=== PATIENT | female | born 1950 ===

== ENCOUNTER 2017-11-30 03:07 | Emergency (ER) | payer MEDICARE ==
[2017-11-30 03:07] VITALS: BMI 45.4
[2017-11-30 03:15] VITALS: RESP 18
[2017-11-30] MEDS ORDERED: Labetalol 25mg/5ml Syringe IVP STA (03:18)
--- NOTE | 2017-11-30 03:28 | C.PDOC ---
History Of Present Illness 67 y/o F c PMHx HTN p/w headache x 3 hours. Patient describes headache as diffuse, like pounding and tingling. Denies fever, vision change, nausea, vomiting, numbness, weakness, stiff neck. States she always gets this headache when she has high blood pressure. Time Seen by Provider: 11/30/17 03:12 Chief Complaint (Nursing): High Blood Pressure Past Medical History Vital Signs: Last Vital Signs Temp 97.7 F 11/30/17 03:12 Pulse 82 11/30/17 03:57 Resp 18 11/30/17 03:57 BP 178/83 H 11/30/17 03:57 Pulse Ox 97 11/30/17 04:45 - Medical History PMH: Diabetes, HTN Family History: States: Unknown Family Hx - Social History Hx Tobacco Use: No Hx Alcohol Use: No Hx Substance Use: No - Immunization History Hx Tetanus Toxoid Vaccination: Yes Hx Influenza Vaccination: Yes Hx Pneumococcal Vaccination: Yes Review Of Systems Except As Marked, All Systems Reviewed And Found Negative. Constitutional: Negative for: Fever Eyes: Negative for: Vision Change Physical Exam - Physical Exam Additional Physical Exam Comments: Gen: NAD Head: NC/AT Eyes: PERRL. EOMI ENT: MMM Neck: Supple. No rigidity CV: Regular rate Lungs: CTA b/l Abd: Soft, NT Back: No CVA tenderness Skin: No rash Neuro: Alert, no focal deficit. Motor 5/5 x 4. CN II to II intact. Sensation to light touch intact. Oriented x 3. ED Course And Treatment - Laboratory Results Result Diagrams: 11/30/17 03:47 11/30/17 03:47 O2 Sat by Pulse Oximetry: 97 Medical Decision Making Medical Decision Making: Labetalol for HTN, CT head to exclude acute bleed. CT Head results: FINDINGS: BRAIN: Incidental tiny 8 x 3 mm fat density area in the upper posterior fossa region, in the midline, which appears extra-axial. This most likely a lipoma or other clinically insignificant entity. No significant acute abnormality identified. No acute hemorrhage seen within the brain. No acute extra-axial fluid collections visualized. No evidence of significant mass effect within the brain. Normal edmondson-white matter differentiation. VENTRICLES: No evidence of significant hydrocephalus. BONES/JOINTS: No acute fractures or other acute bony abnormality noted. SOFT TISSUES: No acute abnormality of the visualized soft tissues is seen. SINUSES: Visualized paranasal sinuses appear clear. MASTOID AIR CELLS: Mastoid air cells appear clear. IMPRESSION: - No acute findings seen within the brain. - See above for remaining findings. Thank you for allowing us to participate in the care of your patient. Dictated and Authenticated by: Nancy Painter MD 11/30/2017 4:19 AM Eastern Time ([place] & [place]) Patient states she feels much better. Will discharge home, f/u PMD, instructed to return to ED for worsening pain, dyspnea, chest pain, vomiting, or any other problem. Disposition - Disposition Referrals: Darío Ayon MD [Staff Provider] - Disposition: HOME/ ROUTINE Disposition Time: 04:45 Condition: STABLE Instructions: Headache, Adult Forms: [facility] (Irish) - Clinical Impression Clinical Impression: Headache
[2017-11-30] MEDS ORDERED: Labetalol 25mg/5ml Syringe ONE (03:40)
[2017-11-30 03:50] LABS: BASO # 0.1 K/uL (0.0-0.2); BASO % 0.9 % (0.0-2.0); EOS # 0.3 K/uL (0.0-0.7); HEMOGLOBIN 14.2 g/dL (11.0-16.0); LYMPH % 35.5 % (20.0-40.0); MEAN CORPUSCULAR HEMOGLOBIN 27.9 pg (27.0-31.0); MEAN CORPUSCULAR HGB CONC 34.5 g/dL (33.0-37.0); MONO # 0.6 K/uL (0.0-0.8); MONO % 7.2 % (0.0-10.0); NEUT # 4.6 K/uL (1.8-7.0); NEUT % 53.4 % (50.0-75.0); NRBC % 0.1 % (0.0-2.0); RBC 5.09 Mil/uL (3.80-5.20); WHITE BLOOD COUNT 8.5 K/uL (4.8-10.8)
[2017-11-30 03:59] LABS: ALB/GLOB RATIO 0.9 (1.0-2.1); ALBUMIN 3.8 g/dL (3.5-5.0); ALT/SGPT 26 U/L (9-52); AST/SGOT 26 U/L (14-36); BLOOD UREA NITROGEN 14 mg/dL (7-17); GFR AFRICAN-AMERICAN > 60; GFR NON-AFRICAN AMERICAN > 60
[2017-11-30 04:27] LABS: SQUAMOUS EPITHIAL 3 /hpf (0-5); URINE BILIRUBIN NEGATIVE (NEGATIVE); URINE BLOOD NEGATIVE (NEGATIVE); URINE CLARITY Clear (Clear); URINE COLOR Straw (YELLOW); URINE GLUCOSE (UA) NORMAL (Normal); URINE LEUKOCYTE ESTERASE NEG Leu/uL (Negative); URINE PROTEIN 2+ mg/dL (NEGATIVE); URINE UROBILINOGEN NORMAL mg/dL (0.2-1.0)
[2017-11-30 04:44] VITALS: O2SAT 97
[2017-11-30 05:05] VITALS: BP 151/70; PULSE 87; TEMP 98.6
--- NOTE | 2017-11-30 08:47 | CT ---
CT head History: Headache. Comparison: None available. Technique: Multiple contiguous axial images were performed through the head without the use of intravenous contrast. Subsequently, sagittal and coronal reformatted images were obtained. Findings: Incidentally noted is a small 8 x 3 millimeter fat containing density area in the upper posterior fossa region, in the midline which appears extra-axial. This is of uncertain clinical etiology and may represent a small lipoma. Bilateral basal ganglia calcifications. No acute intracranial hemorrhage identified. Normal edmondson-white matter differentiation. No evidence of significant hydrocephalus. Paranasal sinuses appear preserved. Impression: No acute intracranial hemorrhage. 8 x 3 millimeter fat containing density in the upper posterior fossa region, in the midline, which appears extra-axial. This is of uncertain clinical etiology. This may represent a small lipoma. Additional etiologies not excluded. Correlation with MRI may be helpful if clinically indicated. These findings were preliminarily reported at 4:19 a.m. on 11/30/[address] Nancy Painter from [facility].
--- NOTE | 2017-12-01 11:10 | CARD ---
APPROVED REPORT EKG Measurement Heart [id number] <Conclusion> Normal sinus rhythm Normal ECG
== END 2017-11-30 05:15 | disposition home or self-care (01) ==
LOC: C.ER 03:07
DX: R51 Headache (principal); I10 Essential (primary) hypertension; E11.9 Type 2 diabetes mellitus without complications

== ENCOUNTER 2018-03-29 06:03 | Observation (INO) | payer MEDICARE ==
[2018-03-29 06:03] VITALS: BMI 45.4
[2018-03-29] MEDS ORDERED: Nitroglycerin 2% Ointment Foilpak UD TOP STA (06:24)
--- NOTE | 2018-03-29 06:26 | C.PDOC ---
History Of Present Illness <Mohit Mcnally R - Last Filed: 03/29/18 06:29> <Maldonado Mckeon E - Last Filed: 03/29/18 07:50> 67yo female, history of HTN, comes to ER after noticing high blood pressure at home. Patient reports mild headache and a "pressure" sensation in her chest. She denies any chest pain or shortness of breath. (Mohit Mcnally R) History Per: Patient History/Exam Limitations: no limitations Onset/Duration Of Symptoms: Days Current Symptoms Are (Timing): Still Present Quality: Pressure Additional History Per: Patient <Mohit Mcnally R - Last Filed: 03/29/18 06:29> <Maldonado Mckeon - Last Filed: 03/29/18 07:50> Time Seen by Provider: 03/29/18 06:10 Chief Complaint (Nursing): Chest Pain Past Medical History Reviewed: Historical Data, Nursing Documentation, Vital Signs - Medical History PMH: Diabetes, HTN Surgical History: No Surg Hx Family History: States: No Known Family Hx - Social History Hx Tobacco Use: No Hx Alcohol Use: No Hx Substance Use: No - Immunization History Hx Tetanus Toxoid Vaccination: Yes Hx Influenza Vaccination: Yes Hx Pneumococcal Vaccination: Yes <Mohit Mcnally - Last Filed: 03/29/18 06:29> Vital Signs: Last Vital Signs Temp 98.1 F 03/29/18 06:09 Pulse 67 03/29/18 07:05 Resp 19 03/29/18 07:05 BP 193/89 H 03/29/18 07:05 Pulse Ox 96 03/29/18 07:05 Review Of Systems Cardiovascular: Positive for: Other (chest pressure). Negative for: Chest Pain Respiratory: Negative for: Shortness of Breath Neurological: Positive for: Headache <Mohit Mcnally R - Last Filed: 03/29/18 06:29> Physical Exam - Physical Exam Appears: Non-toxic Skin: Normal Color Head: Atraumatic, Normacephalic Eye(s): bilateral: Normal Inspection, PERRL, EOMI Oral Mucosa: Moist Neck: Normal ROM, Supple Chest: Symmetrical Cardiovascular: Rhythm Regular, No Murmur, Other (+ elevated blood pressure) Respiratory: Normal Breath Sounds Extremity: Normal ROM Neurological/Psych: Oriented x3, Normal Speech, Normal Cognition, Normal Motor, Normal Sensation <Mohit Mcnally - Last Filed: 03/29/18 06:29> ED Course And Treatment ECG: Interpreted By Me, Viewed By Me ECG Rhythm: Sinus Rhythm ECG Interpretation: No Acute Changes Interpretation Of ECG: NSR, possible LAE, no acute changesl, borderline tracings. Rate From EC O2 Sat by Pulse Oximetry: 98 (RA) Pulse Ox Interpretation: Normal <Sen Mcnallyel Alanis - Last Filed: 03/29/18 06:29> - Laboratory Results Result Diagrams: 03/29/18 06:34 03/29/18 06:34 <Maldonado Mckeon - Last Filed: 03/29/18 07:50> Medical Decision Making <UliMohit Thapa - Last Filed: 03/29/18 06:29> <Maldonado Mckeon - Last Filed: 03/29/18 07:50> Medical Decision Making: Plan: -- Labs -- cXR -- CT Head w/o contrast -- Aspirin 162 mg PO -- NTG 1 application (Mohit Mcnally) 0745 signed over @ 0700 pt with chest discomfort @ 0500 Hypertensive on arrival, NTP given seen and examined, SBP still 190, asymptomatic now Hydralazine 10 mg PO ordered cxr, labs, EKG wnl EKG NSR 75 d/w Hospitalist- Dr. Gaffney- covering pt's for Dr. Esteban Chanel- ok to Tele Obs. (Maldonado Mckeon) Disposition <McnallyMohit Alanis - Last Filed: 03/29/18 06:29> Doctor Will See Patient In The: Hospital Counseled Patient/Family Regarding: Studies Performed, Diagnosis - Disposition Disposition Time: 07:50 <Maldonado Mckeon - Last Filed: 03/29/18 07:50> - Disposition Disposition: HOSPITALIZED Condition: GOOD Forms: [facility] (Urdu) - Clinical Impression Clinical Impression: Chest discomfort, Uncontrolled hypertension - PA / [employer] / Resident Statement MD/DO has reviewed & agrees with the documentation as recorded. - Scribe Statement The provider has reviewed the documentation as recorded by the Scribe <Mohit Mcnally - Last Filed: 03/29/18 06:29> <Maldonado Mckeon - Last Filed: 03/29/18 07:50> - Scribe Statement Annika Walters (Mohit Mcnally) Provider Attestation: All medical record entries made by the Scribe were at my direction and personally dictated by me. I have reviewed the chart and agree that the record accurately reflects my personal performance of the history, physical exam, medical decision making, and the department course for this patient. I have also personally directed, reviewed, and agree with the discharge instructions and disposition. (Mohit Mcnally)
[2018-03-29 06:38] LABS: BASO # 0.1 K/uL (0.0-0.2); BASO % 1.1 % (0.0-2.0); EOS # 0.3 K/uL (0.0-0.7); EOS % 3.4 % (0.0-4.0); HEMOGLOBIN 14.4 g/dL (11.0-16.0); LYMPH # 2.7 K/uL (1.0-4.3); LYMPH % 33.7 % (20.0-40.0); MEAN CORPUSCULAR HEMOGLOBIN 27.9 pg (27.0-31.0); MEAN CORPUSCULAR HGB CONC 34.5 g/dL (33.0-37.0); MEAN PLATELET VOLUME 9.9 fL (7.2-11.7); MONO # 0.6 K/uL (0.0-0.8); NEUT # 4.4 K/uL (1.8-7.0); NEUT % 54.8 % (50.0-75.0); RBC 5.16 Mil/uL (3.80-5.20); RED CELL DISTRIBUTION WIDTH 14.4 % (11.5-14.5)
[2018-03-29 06:48] LABS: PROTHROMBIN TIME 11.2 SECONDS (9.7-12.2)
[2018-03-29 06:58] LABS: ALB/GLOB RATIO 1.2 (1.0-2.1); ALBUMIN 4.3 g/dL (3.5-5.0); CALCIUM 9.1 mg/dl (8.6-10.4); GFR AFRICAN-AMERICAN > 60; GFR NON-AFRICAN AMERICAN > 60
[2018-03-29 06:59] LABS: ALT/SGPT 28 U/L (9-52); AST/SGOT 31 U/L (14-36); BLOOD UREA NITROGEN 13 mg/dL (7-17)
[2018-03-29 07:10] LABS: CK-MB 0.36 ng/mL (0.0-3.38)
[2018-03-29 08:43] LABS: BARBITURATES, UR NEGATIVE (NEGATIVE); BENZODIAZEPINES, UR NEGATIVE (NEGATIVE); OPIATES, UR NEGATIVE (NEGATIVE); PHENCYCLIDINE, UR NEGATIVE (NEGATIVE)
--- NOTE | 2018-03-29 08:46 | RAD ---
Date of service: 03/29/2018 PROCEDURE: CHEST RADIOGRAPH, 1 VIEW HISTORY: chest pressure COMPARISON: 08/24/2015. FINDINGS: LUNGS: The lungs are well inflated and clear. PLEURA: No pneumothorax or pleural fluid seen. CARDIOVASCULAR: There is mild cardiomegaly. OSSEOUS STRUCTURES: No significant abnormalities. VISUALIZED UPPER ABDOMEN: Normal. OTHER FINDINGS: None. IMPRESSION: No active pulmonary disease.
--- NOTE | 2018-03-29 08:55 | CT ---
Date of service: 03/29/2018 PROCEDURE: CT HEAD WITHOUT CONTRAST. HISTORY: numbness of chin and facial area COMPARISON: 11/30/2017. TECHNIQUE: Axial computed tomography images were obtained through the head/brain without intravenous contrast. Radiation dose: Total exam DLP = 920.59 mGy-cm. This CT exam was performed using one or more of the following dose reduction techniques: Automated exposure control, adjustment of the mA and/or kV according to patient size, and/or use of iterative reconstruction technique. FINDINGS: HEMORRHAGE: No intracranial hemorrhage. BRAIN: Vega-white matter differentiation is preserved. There is no mass, mass effect or abnormal extra-axial fluid collection. There is no territorial infarction. The midline sagittal structures are normal. VENTRICLES: The ventricles are normal in size, shape and configuration. CALVARIUM: The skull base and calvarium are normal. PARANASAL SINUSES: There is mild scattered mucosal thickening in the right ethmoid air cell, otherwise significant inflammatory changes. MASTOID AIR CELLS: Clear. OTHER FINDINGS: None. IMPRESSION: No acute intracranial abnormality. If there is a persistent focal neurologic deficit and an ongoing clinical concern for acute infarction, an MRI of the brain without intravenous contrast would be a more sensitive modality for evaluation of hyperacute/acute ischemic infarction.
--- NOTE | 2018-03-29 09:01 | CP.PCM.HP ---
<Devin Meneses - Last Filed: 03/29/18 17:36> History of Present Illness - History of Present Illness History of Present Illness: CC: "Chest tightness and elevated blood pressure) 67 year old female with a past medical history of hypertension and type 2 diabetes who came in today after reporting some chest tightness that began at 5 a.m. this morning. The patient states that she she was sitting down when she began to feel the chest tightness. She states it located mid-sternally with no radiation. She rates the pain a 8/10 in severity when it began. She then took her blood pressure and it was 240/100. She reports taking her home medication Losartan 50 mg and Atenolol 50mg afterwards. When the pain wasn't improving, she decided to come into the emergency room with her . She reports some "fuzzy" vision changes that started earlier this morning as well. She denies any fevers, chills, dizziness, headache, sore throat, shortness of breath, orthopnea, dyspnea, leg pain, dysuria, recent travel, or any other complaints. ED Dispo: 10mg PO Hydralazine, 162 mg PO Aspirin STAT, Nitro 2% Top PMD: Dr. Redding Past medical history: hypertension, type 2 diabetes Surgical history: Left knee meniscal repair (2000) Allergies: Carlos Medications: Losartan 25mg PO Daily, Atenolol 50mg PO Daily, Glymiprizide 10mg Daily, Januvmet (Must confirm dosage with Pharmacy: [facility] in [place], [place]) Family History: Sister (HTN). Mom (HTN) Social history: Carlos tobacco or alcohol use. Carlos illict drug use. Lives in [place] with and Daughter. Works for a [employer] Full code. Present on Admission - Present on Admission Any Indicators Present on Admission: No Review of Systems - Constitutional Constitutional: absent: Chills, Daytime Sleepiness, Headache, Night Sweats, Snoring, Weakness - EENT Eyes: Other (Fuzzy vision). absent: Blurred Vision, Discharge, Loss of Peripheral Vision, Requires Corrective Lenses Ears: absent: Ear Discharge, Dizziness Nose/Mouth/Throat: absent: Nasal Congestion, Nose Pain, Bleeding Gums, Dysphagia , Halitosis, Mouth Pain, Facial Pain - Cardiovascular Cardiovascular: absent: Chest Pain, Claudication, Irregular Heart Rhythm, Leg Edema, Palpitations - Respiratory Respiratory: absent: Cough, Dyspnea, Hemoptysis, Snoring, Pain on Inspiration - Gastrointestinal Gastrointestinal: absent: Belching, Change in Stool Character, Diarrhea, Fecal Incontinence, Heartburn, Loose Stools, Nausea, Vomiting - Genitourinary Genitourinary: absent: Change in Urinary Stream, Pyuria, Nocturia, Urinary Hesitance, Urinary Urgency, Freq UTI - Musculoskeletal Musculoskeletal: absent: Abnormal Gait, Arthralgias, Muscle Weakness, Neck Pain - Integumentary Integumentary: absent: Changing Lesions, New Lesions, Unusual Bruising - Neurological Neurological: Numbness, Tingling. absent: Burning Sensations, Dizziness, Headaches - Endocrine Endocrine: Polydipsia, Polyphagia, Polyuria Past Patient History - Infectious Disease Hx of Infectious Diseases: None - Past Social History Smoking Status: Never Smoked - CARDIAC Hx Hypertension: Yes - ENDOCRINE/METABOLIC Hx Endocrine Disorders: Yes Hx Diabetes Mellitus Type 2: Yes - PSYCHIATRIC Hx Substance Use: No - SURGICAL HISTORY Hx Surgeries: Yes Hx Orthopedic Surgery: Yes (left knee) - ANESTHESIA Hx Anesthesia: Yes Hx Anesthesia Reactions: No Meds Allergies/Adverse Reactions: Allergies Allergy/AdvReac Type Severity Reaction Status Date / Time No Known Allergies Allergy Verified 03/29/18 06:15 Physical Exam - Head Exam Head Exam: ATRAUMATIC, NORMAL INSPECTION, NORMOCEPHALIC - Eye Exam Eye Exam: Normal appearance, PERRL Pupil Exam: PERRL. absent: Irregular, NORMAL ACCOMODATION, Unequal - ENT Exam ENT Exam: Mucous Membranes Moist - Neck Exam Neck exam: Positive for: Normal Inspection - Respiratory Exam Respiratory Exam: Clear to Auscultation Bilateral, NORMAL BREATHING PATTERN. absent: Chest Wall Tenderness, Prolonged Expiratory Phase, Respiratory Distress - Cardiovascular Exam Cardiovascular Exam: REGULAR RHYTHM, RRR, +S1, +S2. absent: Rubs, +S4 - GI/Abdominal Exam GI & Abdominal Exam: Normal Bowel Sounds, Soft. absent: Organomegaly, Tenderness - Extremities Exam Extremities exam: Positive for: normal inspection. Negative for: full ROM, pedal edema - Back Exam Back exam: NORMAL INSPECTION. absent: CVA tenderness (L), CVA tenderness (R), paraspinal tenderness - Neurological Exam Neurological exam: Alert, CN II-XII Intact, Normal Gait, Oriented x3 - Psychiatric Exam Psychiatric exam: Normal Affect, Normal Mood - Skin Skin Exam: Dry, Intact, Normal Color Results - Vital Signs Recent Vital Signs: Last Vital Signs Temp 98.1 F 03/29/18 06:09 Pulse 67 03/29/18 08:05 Resp 18 03/29/18 08:05 BP 173/73 H 03/29/18 08:05 Pulse Ox 96 03/29/18 08:05 - Labs Result Diagrams: 03/29/18 06:34 03/29/18 06:34 Labs: Laboratory Results - last 24 hr 03/29/18 03/29/18 03/29/18 06:34 06:34 06:34 WBC 8.0 RBC 5.16 Hgb 14.4 Hct 41.8 MCV 81.0 MCH 27.9 MCHC 34.5 RDW 14.4 Plt Count 223 MPV 9.9 Neut % (Auto) 54.8 Lymph % (Auto) 33.7 Conway % (Auto) 7.0 Eos % (Auto) 3.4 Baso % (Auto) 1.1 Neut # (Auto) 4.4 Lymph # (Auto) 2.7 Conway # (Auto) 0.6 Eos # (Auto) 0.3 Baso # (Auto) 0.1 PT 11.2 INR 1.0 APTT 33 Sodium 140 Potassium 4.4 Chloride 102 Carbon Dioxide 29 Anion Gap 14 BUN 13 Creatinine 0.8 Est GFR ( Amer) > 60 Est GFR (Non-Af Amer) > 60 Random Glucose 171 H Calcium 9.1 Total Bilirubin 0.9 AST 31 ALT 28 Alkaline Phosphatase 107 Total Creatine Kinase 54 CK-MB (Mass) 0.36 Troponin I 0.0140 Total Protein 7.9 Albumin 4.3 Globulin 3.7 Albumin/Globulin Ratio 1.2 Urine Opiates Screen Urine Methadone Screen Ur Barbiturates Screen Ur Phencyclidine Scrn Ur Amphetamines Screen U Benzodiazepines Scrn U Oth Cocaine Metabols U Cannabinoids Screen 03/29/18 08:16 WBC RBC Hgb Hct MCV MCH MCHC RDW Plt Count MPV Neut % (Auto) Lymph % (Auto) Conway % (Auto) Eos % (Auto) Baso % (Auto) Neut # (Auto) Lymph # (Auto) Conway # (Auto) Eos # (Auto) Baso # (Auto) PT INR APTT Sodium Potassium Chloride Carbon Dioxide Anion Gap BUN Creatinine Est GFR ( Amer) Est GFR (Non-Af Amer) Random Glucose Calcium Total Bilirubin AST ALT Alkaline Phosphatase Total Creatine Kinase CK-MB (Mass) Troponin I Total Protein Albumin Globulin Albumin/Globulin Ratio Urine Opiates Screen Negative Urine Methadone Screen Negative Ur Barbiturates Screen Negative Ur Phencyclidine Scrn Negative Ur Amphetamines Screen Negative U Benzodiazepines Scrn Negative U Oth Cocaine Metabols Negative U Cannabinoids Screen Negative Assessment & Plan - Assessment and Plan (Free Text) Assessment: 67 year old female with a past medical history of hypertension and diabetes who is being admitted for chest pain. Plan: 1.Chest pain r/o ACS -Patient denies any past history of :Echocardiogram, Stress Test, or Cardiac catherization -CHAYA Score 2: 8% Mortality Risk in 14 days. -EKG: NSR @75BPM, no ST-T changes -Troponin (-)x1. Will trend troponins -Lipid panel ordered. Will f/u with results -TSH ordered .Will f/u with results. -Cardiology Dr. Adelso Smith onsulted. Help appreciated -Echocardiogram ordered. Help appreciated 2. Hypertensive Urgency ED Course: 10mg PO Hydralazine, 162MG PO STAT Aspirin, Nitro 2% Top -Patient had a blood pressure read of 240/100 at home today. Patient normally states the SBP is in the 140's -Restart Losartan 25mg PO Daily -Restart Atenolol 50mg PO Daily 3.Type 2 Diabetes Mellitus -Hold Glymipizide 10mg Daily, Januvmet (Will confirm with Pharmacy [facility] in [place]( -Hemoglobin A1C ordered. Will f/u with results. -ISS Low -Accu checks ACHS 4. Hypomagnesmia 1.4 Upon admission. -MgSulfate x2 Bags. -Repeat Magnesium in the am. PPX -GI ppx not indicated at this time. -Heparin 5000 units q12 Dispo: Follow up with Cardiology and troponins. Plan discussed with Dr. Gaffney. Devin Meneses, PGY-2 <Evangelina Gaffney V - Last Filed: 03/29/18 19:38> Results - Vital Signs Recent Vital Signs: Last Vital Signs Temp 97.8 F 03/29/18 15:45 Pulse 60 03/29/18 15:45 Resp 20 03/29/18 15:45 BP 149/64 03/29/18 15:45 Pulse Ox 96 03/29/18 15:45 - Labs Result Diagrams: 03/29/18 06:34 03/29/18 06:34 Labs: Laboratory Results - last 24 hr 03/29/18 03/29/18 03/29/18 06:34 06:34 06:34 WBC 8.0 RBC 5.16 Hgb 14.4 Hct 41.8 MCV 81.0 MCH 27.9 MCHC 34.5 RDW 14.4 Plt Count 223 MPV 9.9 Neut % (Auto) 54.8 Lymph % (Auto) 33.7 Conway % (Auto) 7.0 Eos % (Auto) 3.4 Baso % (Auto) 1.1 Neut # (Auto) 4.4 Lymph # (Auto) 2.7 Conway # (Auto) 0.6 Eos # (Auto) 0.3 Baso # (Auto) 0.1 PT 11.2 INR 1.0 APTT 33 Sodium 140 Potassium 4.4 Chloride 102 Carbon Dioxide 29 Anion Gap 14 BUN 13 Creatinine 0.8 Est GFR ( Amer) > 60 Est GFR (Non-Af Amer) > 60 POC Glucose (mg/dL) Random Glucose 171 H Hemoglobin A1c Calcium 9.1 Phosphorus Magnesium Total Bilirubin 0.9 AST 31 ALT 28 Alkaline Phosphatase 107 Total Creatine Kinase 54 CK-MB (Mass) 0.36 Troponin I 0.0140 Total Protein 7.9 Albumin 4.3 Globulin 3.7 Albumin/Globulin Ratio 1.2 Triglycerides Cholesterol LDL Cholesterol Direct HDL Cholesterol Urine Opiates Screen Urine Methadone Screen Ur Barbiturates Screen Ur Phencyclidine Scrn Ur Amphetamines Screen U Benzodiazepines Scrn U Oth Cocaine Metabols U Cannabinoids Screen 03/29/18 03/29/18 03/29/18 08:15 08:16 11:49 WBC RBC Hgb Hct MCV MCH MCHC RDW Plt Count MPV Neut % (Auto) Lymph % (Auto) Conway % (Auto) Eos % (Auto) Baso % (Auto) Neut # (Auto) Lymph # (Auto) Conway # (Auto) Eos # (Auto) Baso # (Auto) PT INR APTT Sodium Potassium Chloride Carbon Dioxide Anion Gap BUN Creatinine Est GFR ( Amer) Est GFR (Non-Af Amer) POC Glucose (mg/dL) 144 H Random Glucose Hemoglobin A1c 9.8 H Calcium Phosphorus Magnesium Total Bilirubin AST ALT Alkaline Phosphatase Total Creatine Kinase CK-MB (Mass) Troponin I Total Protein Albumin Globulin Albumin/Globulin Ratio Triglycerides Cholesterol LDL Cholesterol Direct HDL Cholesterol Urine Opiates Screen Negative Urine Methadone Screen Negative Ur Barbiturates Screen Negative Ur Phencyclidine Scrn Negative Ur Amphetamines Screen Negative U Benzodiazepines Scrn Negative U Oth Cocaine Metabols Negative U Cannabinoids Screen Negative 03/29/18 03/29/18 13:44 16:05 WBC RBC Hgb Hct MCV MCH MCHC RDW Plt Count MPV Neut % (Auto) Lymph % (Auto) Conway % (Auto) Eos % (Auto) Baso % (Auto) Neut # (Auto) Lymph # (Auto) Conway # (Auto) Eos # (Auto) Baso # (Auto) PT INR APTT Sodium Potassium Chloride Carbon Dioxide Anion Gap BUN Creatinine Est GFR ( Amer) Est GFR (Non-Af Amer) POC Glucose (mg/dL) 147 H Random Glucose Hemoglobin A1c Calcium Phosphorus 3.7 Magnesium 1.5 L Total Bilirubin AST ALT Alkaline Phosphatase Total Creatine Kinase 66 CK-MB (Mass) 0.46 Troponin I 0.0140 Total Protein Albumin Globulin Albumin/Globulin Ratio Triglycerides 100 Cholesterol 175 LDL Cholesterol Direct 111 HDL Cholesterol 36 Urine Opiates Screen Urine Methadone Screen Ur Barbiturates Screen Ur Phencyclidine Scrn Ur Amphetamines Screen U Benzodiazepines Scrn U Oth Cocaine Metabols U Cannabinoids Screen Attending/Attestation - Attestation I have personally seen and examined this patient.: Yes I have fully participated in the care of the patient.: Yes I have reviewed all pertinent clinical information: Yes Notes (Text): Patient seen, examined and case discussed with day-time resident. Patient in [facility] Bed 6 in the Emergency Room this morning at approximately 8: 25AM accompanied by daughter at bedside. Patient with known hx of hypertension, diabetes, morbid obesity reports had chest pain at resident, attempted her home anti-hypertensive therapy but chest pain did not resolve. Patient came to the ER, had received nitropaste and hydralazine 10mg PO, chest pain has resolved at time in the ED. patient has not had prior cardiac workup in light of her diabetes. 1.Chest pain r/o ACS Assessment/Plan * Obs/tele * Cardiology quality control director Dr. Adelso Smith onsulted. Help appreciated * Risk factor: hypertension, morbid obesity, diabetes, family hx of hypertension * Patient denies any past history of :Echocardiogram, Stress Test, or Cardiac catherization * CHAYA Score 2: 8% Mortality Risk in 14 days. * EKG: NSR @75BPM, no ST-T changes * NIA and EKG X6 hours; first troponin negative * Lipid panel ordered. Will f/u with results * TSH ordered .Will f/u with results. * Cardiology Dr. Adelso Smith onsulted. Help appreciated * Echocardiogram (03/29/18): normal left ventricular systolic function and wall motion. mild aortic and mild mitral regurgitation * Aspirin 162 mg PO stat * Start Aspirin 81mg PO daily * Restart Losartan 25mg PO Daily * Restart Atenolol 50mg PO Daily 2. Hypertensive Urgency Assessment/Plan * ED Course: 10mg PO Hydralazine, 162MG PO STAT Aspirin, Nitro 2% Top * Patient had a blood pressure read of 240/100 at home today. Patient normally states the SBP is in the 140's. Patient reports she took Losartan and Atenolol at home prior to coming to the hospital today * Restart Losartan 25mg PO Daily * Restart Atenolol 50mg PO Daily 3.Type 2 Diabetes Mellitus Assessment/Plan * Hold Amaryl and Janument * Hemoglobin A1C ordered. Will f/u with results. * ISS Low * Accu checks ACHS 4. Hypomagnesmia Assessment/Plan * repleted 5. PPX * GI ppx not indicated at this time. * Heparin 5000 units q12 Disposition: Follow-up cardiac enzymes, monitor blood pressure, and follow-up with cardiology consult
[2018-03-29] MEDS ORDERED: Losartan 12.5 MG TAB PO SCH (10:00)
[2018-03-29] MEDS: (Novolin R) Insulin Human Regular 100 units/ml vial SC SCH ×3 (12:00→22:30)
[2018-03-29 14:16] LABS: CK-MB 0.46 ng/mL (0.0-3.38); TROPONIN I 0.014 ng/mL (0.00-0.120)
[2018-03-29] MEDS ORDERED: Magnesium Sulfate 1 gm in D5W 1 GM/100 ML BAG IVPB ONE ×3 (15:39→17:00)
--- NOTE | 2018-03-29 19:13 | CARD ---
APPROVED REPORT Date of service: 03/29/2018 EXAM: Two-dimensional and M-mode echocardiogram with Doppler and color Doppler. Other Information Quality : GoodRhythm : INDICATION Chest Pain RISK FACTORS Hypertension 2D DIMENSIONS IVSd0.9 (0.7-1.1cm)LVDd4.1 (3.9-5.9cm) PWd1.1 (0.7-1.1cm)LVDs2.7 (2.5-4.0cm) FS (%) 33.5 %LVEF (%)62.7 (>50%) M-Mode DIMENSIONS Left Atrium (MM)4.81 (2.5-4.0cm)IVSd1.14 (0.7-1.1cm) Aortic Root2.55 (2.2-3.7cm)LVDd4.55 (4.0-5.6cm) Aortic Cusp Exc.2.12 (1.5-2.0cm)PWd1.00 (0.7-1.1cm) FS (%) 37 %LVDs2.87 (2.0-3.8cm) LVEF (%)67 (>50%) Aortic Valve AI P 1/2 [id number] Mitral Valve MV E Rvuqjtor30.1cm/sMV A Mccxjsxv150.5cm/sE/A ratio0.9 TDI E/Lateral E'0.0E/Medial E'0.0 Tricuspid Valve TR Peak [id number]/sTR Peak Gr.[id number] LEFT VENTRICLE The left ventricle is normal size. There is normal left ventricular wall thickness. The left ventricular function is normal. The left ventricular ejection fraction is within the normal range. 655 No regional wall motion abnormalities noted. The left ventricular diastolic function is normal. No left ventricle thrombus noted on this study. There is no ventricular septal defect visualized. There is no left ventricular aneurysm. There is no mass noted in the left ventricle. RIGHT VENTRICLE The right ventricle is normal size. There is normal right ventricular wall thickness. The right ventricular systolic function is normal. ATRIA The left atrium size is normal. The right atrium size is normal. The interatrial septum is intact with no evidence for an atrial septal defect. AORTIC VALVE The aortic valve is normal in structure and function. Mild aortic regurgitation is present. There is no aortic valvular stenosis. There is no aortic valvular vegetation. MITRAL VALVE The mitral valve is normal in structure and function. There is no evidence of mitral valve prolapse. There is no mitral valve stenosis. There is mild mitral valve regurgitation noted. TRICUSPID VALVE The tricuspid valve is normal in structure and function. There is mild tricuspid valve regurgitation noted. There is no tricuspid valve prolapse or vegetation. There is no tricuspid valve stenosis. PULMONIC VALVE The pulmonary valve is normal in structure and function. There is no pulmonic valvular regurgitation. There is no pulmonic valvular stenosis. GREAT VESSELS The aortic root is normal in size. The ascending aorta is normal in size. The pulmonary artery is normal. The IVC is normal in size and collapses >50% with inspiration. PERICARDIAL EFFUSION The pericardium appears normal. There is no pleural effusion. <Conclusion> Normal left ventricular systolic function and wall motion. Mild aortic and mild mild mitral regurgitation.
[2018-03-30] MEDS: (Novolin R) Insulin Human Regular 100 units/ml vial SC SCH ×2 (07:41→12:25)
[2018-03-30 07:44] LABS: BASO % 0.5 % (0.0-2.0); EOS # 0.2 K/uL (0.0-0.7); EOS % 2.2 % (0.0-4.0); HEMOGLOBIN 13.7 g/dL (11.0-16.0); LYMPH # 2.5 K/uL (1.0-4.3); LYMPH % 31.8 % (20.0-40.0); MEAN CELL VOLUME 80.6 fL (81.0-99.0); MEAN CORPUSCULAR HEMOGLOBIN 27.8 pg (27.0-31.0); MEAN CORPUSCULAR HGB CONC 34.5 g/dL (33.0-37.0); MEAN PLATELET VOLUME 9.9 fL (7.2-11.7); MONO # 0.5 K/uL (0.0-0.8); MONO % 6.9 % (0.0-10.0); NEUT # 4.6 K/uL (1.8-7.0); NEUT % 58.6 % (50.0-75.0); RBC 4.93 Mil/uL (3.80-5.20); RED CELL DISTRIBUTION WIDTH 14.3 % (11.5-14.5); WHITE BLOOD COUNT 7.8 K/uL (4.8-10.8)
--- NOTE | 2018-03-30 07:51 | CP.PCM.PN ---
Subjective - Date & Time of Evaluation Date of Evaluation: 03/30/18 Time of Evaluation: 07:48 - Subjective Subjective: 67 yo F w/ PMHx of HTN and DM2 admitted w/ chest tightness 2/2 to hypertensive urgency w/ subjective BP of 240/100. Pt seen and examined at bedside, no acute events. Pt denies chest pain, palpitations, dyspnea, abd pain, nausea. Pt reports vision changes have since improved and she currently has no complaints. Objective - Vital Signs/Intake and Output Vital Signs (last 24 hours): Temp Pulse Resp BP Pulse Ox 98.3 F 67 20 164/72 H 95 03/29/18 23:20 03/30/18 04:41 03/29/18 23:20 03/30/18 04:41 03/30/18 06:09 Intake and Output: 03/30/18 03/30/18 06:59 18:59 Intake Total 350 Balance 350 - Medications Medications: Current Medications Aspirin (Aspirin Chewable) 81 mg PO DAILY [facility] Last Admin: 03/29/18 11:42 Dose: Not Given Atenolol (Tenormin) 50 mg PO DAILY [facility] Last Admin: 03/29/18 12:00 Dose: Not Given Heparin Sodium (Porcine) (Heparin) 5,000 units SC Q12 [facility] Last Admin: 03/29/18 22:12 Dose: 5,000 units Insulin Human Regular (Novolin R) 0 unit SC ACHS [facility] PRN Reason: Protocol Last Admin: 03/30/18 07:41 Dose: 1 u Losartan Potassium (Cozaar) 25 mg PO DAILY [facility] - Labs Labs: 03/29/18 06:34 03/29/18 06:34 PT 11.2 SECONDS (9.7-12.2) 03/29/18 06:34 INR 1.0 03/29/18 06:34 APTT 33 SECONDS (21-34) 03/29/18 06:34 - Constitutional Appears: Well, No Acute Distress - Head Exam Head Exam: ATRAUMATIC, NORMAL INSPECTION, NORMOCEPHALIC - Eye Exam Eye Exam: EOMI Pupil Exam: NORMAL ACCOMODATION, PERRL - ENT Exam ENT Exam: Mucous Membranes Moist - Respiratory Exam Respiratory Exam: Clear to Ausculation Bilateral, NORMAL BREATHING PATTERN - Cardiovascular Exam Cardiovascular Exam: RRR. absent: Tachycardia - GI/Abdominal Exam GI & Abdominal Exam: Soft, Normal Bowel Sounds. absent: Distended, Tenderness - Neurological Exam Neurological Exam: Alert, Oriented x3 - Psychiatric Exam Psychiatric exam: Normal Affect Assessment and Plan - Assessment and Plan (Free Text) Assessment: 67 yo F admitted w/ chest tightness 2/2 hypertensive urgency. 1. Chest tightness/r/o ACS -trops (-) x2 -CK-MB (-) -ASa 81mg -lipid panel WNL -f/u TSH -echo WNL, LVEF-67%, mild aortic/mitral regurg -cardio consult 2. Hypertensive Urgency -hypertensive ON 162-182/72-90 -atenolol 50 mg po -to start cozaar 25mg, increase to 50mg if still hypertensive -HH diet 3. DM2 -f/u A1C -d/c ISS, transition to home meds glipizide 10mg, janumet 50-1000 -accuchecks ACHS 4. Hypomagnesemia -1.8 up from 1.5 yesterday -replete w/ MgSO4 as needed Ppx -heparin 5000sc -GI ppx not indicated at this time Mariola Boyce PGY1
[2018-03-30 08:01] LABS: ALB/GLOB RATIO 1.1 (1.0-2.1); ALBUMIN 3.8 g/dL (3.5-5.0); ALT/SGPT 27 U/L (9-52); AST/SGOT 22 U/L (14-36); BLOOD UREA NITROGEN 12 mg/dL (7-17); GFR AFRICAN-AMERICAN > 60; GFR NON-AFRICAN AMERICAN > 60
[2018-03-30 08:11] VITALS: BP 182/90; PULSE 66; RESP 18; TEMP 98.2
[2018-03-30 08:36] VITALS: O2SAT 95
--- NOTE | 2018-03-30 14:13 | CARD ---
APPROVED REPORT Date of service: 03/29/2018 EKG Measurement Heart [id number] <Conclusion> Normal sinus rhythm Normal ECG
--- NOTE | 2018-03-30 14:13 | CARD ---
APPROVED REPORT Date of service: 03/29/2018 EKG Measurement Heart [id number] <Conclusion> Normal sinus rhythm Normal ECG
--- NOTE | 2018-03-30 15:04 | CARD ---
APPROVED REPORT Date of service: 03/29/2018 EKG Measurement Heart [id number] ID [id number] <Conclusion> Normal sinus rhythm Possible Left atrial enlargement Borderline ECG
--- NOTE | 2018-03-30 17:22 | CP.PCM.DIS ---
<Mariola Boyce - Last Filed: 03/30/18 18:55> Provider - Provider Date of Admission: 03/29/18 07:47 Attending physician: Evangelina Gaffney DO Consults: cardiology consult Dr. Smith Time Spent in preparation of Discharge (in minutes): 45 Diagnosis - Discharge Diagnosis (1) Chest discomfort Status: Acute Priority: High (2) Uncontrolled hypertension Status: Chronic Priority: Medium (3) Diabetes mellitus Status: Chronic (4) Electrolyte abnormality Status: Acute Hospital Course - Lab Results Lab Results: Most Recent Lab Values WBC 7.8 K/uL (4.8-10.8) 03/30/18 07:20 RBC 4.93 Mil/uL (3.80-5.20) 03/30/18 07:20 Hgb 13.7 g/dL (11.0-16.0) 03/30/18 07:20 Hct 39.7 % (34.0-47.0) 03/30/18 07:20 MCV 80.6 fL (81.0-99.0) L 03/30/18 07:20 MCH 27.8 pg (27.0-31.0) 03/30/18 07:20 MCHC 34.5 g/dL (33.0-37.0) 03/30/18 07:20 RDW 14.3 % (11.5-14.5) 03/30/18 07:20 Plt Count 224 K/uL (130-400) 03/30/18 07:20 MPV 9.9 fL (7.2-11.7) 03/30/18 07:20 Neut % (Auto) 58.6 % (50.0-75.0) 03/30/18 07:20 Lymph % (Auto) 31.8 % (20.0-40.0) 03/30/18 07:20 Rice % (Auto) 6.9 % (0.0-10.0) 03/30/18 07:20 Eos % (Auto) 2.2 % (0.0-4.0) 03/30/18 07:20 Baso % (Auto) 0.5 % (0.0-2.0) 03/30/18 07:20 Neut # (Auto) 4.6 K/uL (1.8-7.0) 03/30/18 07:20 Lymph # (Auto) 2.5 K/uL (1.0-4.3) 03/30/18 07:20 Rice # (Auto) 0.5 K/uL (0.0-0.8) 03/30/18 07:20 Eos # (Auto) 0.2 K/uL (0.0-0.7) 03/30/18 07:20 Baso # (Auto) 0.0 K/uL (0.0-0.2) 03/30/18 07:20 PT 11.2 SECONDS (9.7-12.2) 03/29/18 06:34 INR 1.0 03/29/18 06:34 APTT 33 SECONDS (21-34) 03/29/18 06:34 Sodium 142 mmol/L (132-148) 03/30/18 07:20 Potassium 4.0 mmol/L (3.6-5.2) 03/30/18 07:20 Chloride 103 mmol/L (98-107) 03/30/18 07:20 Carbon Dioxide 30 mmol/L (22-30) 03/30/18 07:20 Anion Gap 13 (10-20) 03/30/18 07:20 BUN 12 mg/dL (7-17) 03/30/18 07:20 Creatinine 0.8 mg/dL (0.7-1.2) 03/30/18 07:20 Est GFR ( Amer) > 60 03/30/18 07:20 Est GFR (Non-Af Amer) > 60 03/30/18 07:20 POC Glucose (mg/dL) 283 mg/dL (65-110) H 03/30/18 10:55 Random Glucose 168 mg/dL (65-105) H 03/30/18 07:20 Hemoglobin A1c 9.8 % (4.2-6.5) H 03/29/18 08:15 Calcium 9.0 mg/dl (8.6-10.4) 03/30/18 07:20 Phosphorus 3.9 mg/dL (2.5-4.5) 03/30/18 07:20 Magnesium 1.8 mg/dL (1.6-2.3) 03/30/18 07:20 Total Bilirubin 1.1 mg/dL (0.2-1.3) 03/30/18 07:20 AST 22 U/L (14-36) 03/30/18 07:20 ALT 27 U/L (9-52) 03/30/18 07:20 Alkaline Phosphatase 105 U/L (38-126) 03/30/18 07:20 Total Creatine Kinase 68 U/L (30-135) 03/29/18 20:05 CK-MB (Mass) 0.40 ng/mL (0.0-3.38) 03/29/18 20:05 Troponin I < 0.0120 ng/mL (0.00-0.120) 03/29/18 20:05 Total Protein 7.3 g/dL (6.3-8.3) 03/30/18 07:20 Albumin 3.8 g/dL (3.5-5.0) 03/30/18 07:20 Globulin 3.5 gm/dL (2.2-3.9) 03/30/18 07:20 Albumin/Globulin Ratio 1.1 (1.0-2.1) 03/30/18 07:20 Triglycerides 100 mg/dL (0-149) 03/29/18 13:44 Cholesterol 175 mg/dL (0-199) 03/29/18 13:44 LDL Cholesterol Direct 111 mg/dL (0-129) 03/29/18 13:44 HDL Cholesterol 36 mg/dL (30-70) 03/29/18 13:44 TSH 3rd Generation 1.41 mIU/L (0.46-4.68) 03/30/18 07:20 Urine Opiates Screen Negative (NEGATIVE) 03/29/18 08:16 Urine Methadone Screen Negative (NEGATIVE) 03/29/18 08:16 Ur Barbiturates Screen Negative (NEGATIVE) 03/29/18 08:16 Ur Phencyclidine Scrn Negative (NEGATIVE) 03/29/18 08:16 Ur Amphetamines Screen Negative (NEGATIVE) 03/29/18 08:16 U Benzodiazepines Scrn Negative (NEGATIVE) 03/29/18 08:16 U Oth Cocaine Metabols Negative (NEGATIVE) 03/29/18 08:16 U Cannabinoids Screen Negative (NEGATIVE) 03/29/18 08:16 - Hospital Course Hospital Course: On admission: 67 year old female with a past medical history of hypertension and type 2 diabetes who came in today after reporting some chest tightness that began at 5 a.m. this morning. The patient states that she she was sitting down when she began to feel the chest tightness. She states it located mid-sternally with no radiation. She rates the pain a 8/10 in severity when it began. She then took her blood pressure and it was 240/100. She reports taking her home medication Losartan 50 mg and Atenolol 50mg afterwards. When the pain wasn't improving, she decided to come into the emergency room with her . She reports some "fuzzy" vision changes that started earlier this morning as well. She denies any fevers, chills, dizziness, headache, sore throat, shortness of breath, orthopnea, dyspnea, leg pain, dysuria, recent travel, or any other complaints. Course of treatment included: ACS ruled out, troponins negative x3, EKG-NSR @75, CXR WNL, Aspirin 162mg administered as per ED physician, Nitroglycerin x1. Hydralazine given as patient 's blood pressure was still elevated in ED. Pt advised to begin Aspirin 81mg at home upon discharge. Pt reported facial numbness; head CT(-). Pt was then started on home atenolol 50mg, Losartan added w/ gradual improvement in BP. Pt to resume atenolol 50mg and increase losartan from 50 to 100mg at home. Echo was performed which showed normal EF ( 67%), mild aortic regurgitation and mild mitral regurgitation Patient with history of DM2-poorly controlled, Hgb a1C 9.8. ISS and Accuchecks ACHS. Pt to resume home glipizide 10mg and janumet 50-1000 upon discharge. Pt advised to monitor blood glucose more tightly, and encouraged to watch diet and initiate exercise regimen. This is a brief summary of events. For a complete course, refer to the medical record. Discharge instructions Pt given a script for aspirin 81mg PO daily Pt given script for atenolol 50mg PO daily Pt given script for losartan 100mg daily Pt advised to follow up w/ PMD Dr. Hidalgo within 1 week of discharge. Pt advised to follow up w/ assembler type bar and segment Dr. Smith within 1-2 weeks of discharge Pt advised to return to ED w/ return or worsening of symptoms - Date & Time of H&P Date of H&P: 03/30/18 Time of H&P: 18:23 Discharge Exam - Head Exam Head Exam: ATRAUMATIC, NORMAL INSPECTION, NORMOCEPHALIC - Eye Exam Eye Exam: EOMI - ENT Exam ENT Exam: Mucous Membranes Moist - Respiratory Exam Respiratory Exam: NORMAL BREATHING PATTERN, UNREMARKABLE - Cardiovascular Exam Cardiovascular Exam: REGULAR RHYTHM - GI/Abdominal Exam GI & Abdominal Exam: Normal Bowel Sounds, Unremarkable - Neurological Exam Neurological exam: Alert, Normal Gait, Oriented x3 Discharge Plan - Discharge Medications Prescriptions: Aspirin [Aspirin Chewable] 81 mg PO DAILY #30 chew Atenolol [Tenormin] 50 mg PO DAILY #30 tab Losartan Potassium [Cozaar] 100 mg PO DAILY #30 tablet - Follow Up Plan Condition: STABLE Disposition: HOME/ ROUTINE Patient education suggested?: Yes Instructions: DASH Diet, Chest Pain (DC), Low Salt Diet, Aspirin, Atenolol, Losartan, Hypertension (DC) Additional Instructions: Pt is stable for discharge home. Patient is to follow up with primary care doctor Donte within 1 week of discharge for post hospital care. Patient is to follow up with assembler type bar and segment, Dr. Smith within 1-2 weeks of discharge. Patient is to resume home medications(Atenolol, glipizide, janumet). Patient is to now take Losartan 100mg once by mouth daily and aspirin 81mg once by mouth daily. Patient is to return to the emergency room if symptoms return. All instructions have been explained to the patient, and she agrees. Pt es estable para la descarga a casa. El paciente debe realizar un seguimiento con el mdico de atencin primaria Donte dentro de la primera semana despus del rupert para recibir atencin hospitalaria posterior. El paciente debe realizar un seguimiento con el cardilogo, el Dr. Gomez, dentro de 1 a 2 semanas despus del rupert. El paciente debe reanudar los medicamentos en el hogar (Atenolol, glipizida, janumet). El paciente debe tim Losartan 100 mg madhuri vez por va oral todos los bonner y aspirin 81 mg madhuri vez por va oral todos los bonner. El paciente debe regresar a la zack de emergencias si los sntomas regresan. Todas las instrucciones vences sido explicadas al paciente, y aman est de acuerdo. Referrals: Adelso Smith MD [Staff Provider] - <Evangelina Gaffney V - Last Filed: 03/31/18 00:02> Provider - Provider Date of Admission: 03/29/18 07:47 Attending physician: Evangelina Gaffney, Hospital Course - Lab Results Lab Results: Most Recent Lab Values WBC 7.8 K/uL (4.8-10.8) 03/30/18 07:20 RBC 4.93 Mil/uL (3.80-5.20) 03/30/18 07:20 Hgb 13.7 g/dL (11.0-16.0) 03/30/18 07:20 Hct 39.7 % (34.0-47.0) 03/30/18 07:20 MCV 80.6 fL (81.0-99.0) L 03/30/18 07:20 MCH 27.8 pg (27.0-31.0) 03/30/18 07:20 MCHC 34.5 g/dL (33.0-37.0) 03/30/18 07:20 RDW 14.3 % (11.5-14.5) 03/30/18 07:20 Plt Count 224 K/uL (130-400) 03/30/18 07:20 MPV 9.9 fL (7.2-11.7) 03/30/18 07:20 Neut % (Auto) 58.6 % (50.0-75.0) 03/30/18 07:20 Lymph % (Auto) 31.8 % (20.0-40.0) 03/30/18 07:20 Rice % (Auto) 6.9 % (0.0-10.0) 03/30/18 07:20 Eos % (Auto) 2.2 % (0.0-4.0) 03/30/18 07:20 Baso % (Auto) 0.5 % (0.0-2.0) 03/30/18 07:20 Neut # (Auto) 4.6 K/uL (1.8-7.0) 03/30/18 07:20 Lymph # (Auto) 2.5 K/uL (1.0-4.3) 03/30/18 07:20 Rice # (Auto) 0.5 K/uL (0.0-0.8) 03/30/18 07:20 Eos # (Auto) 0.2 K/uL (0.0-0.7) 03/30/18 07:20 Baso # (Auto) 0.0 K/uL (0.0-0.2) 03/30/18 07:20 PT 11.2 SECONDS (9.7-12.2) 03/29/18 06:34 INR 1.0 03/29/18 06:34 APTT 33 SECONDS (21-34) 03/29/18 06:34 Sodium 142 mmol/L (132-148) 03/30/18 07:20 Potassium 4.0 mmol/L (3.6-5.2) 03/30/18 07:20 Chloride 103 mmol/L (98-107) 03/30/18 07:20 Carbon Dioxide 30 mmol/L (22-30) 03/30/18 07:20 Anion Gap 13 (10-20) 03/30/18 07:20 BUN 12 mg/dL (7-17) 03/30/18 07:20 Creatinine 0.8 mg/dL (0.7-1.2) 03/30/18 07:20 Est GFR ( Amer) > 60 03/30/18 07:20 Est GFR (Non-Af Amer) > 60 03/30/18 07:20 POC Glucose (mg/dL) 283 mg/dL (65-110) H 03/30/18 10:55 Random Glucose 168 mg/dL (65-105) H 03/30/18 07:20 Hemoglobin A1c 9.8 % (4.2-6.5) H 03/29/18 08:15 Calcium 9.0 mg/dl (8.6-10.4) 03/30/18 07:20 Phosphorus 3.9 mg/dL (2.5-4.5) 03/30/18 07:20 Magnesium 1.8 mg/dL (1.6-2.3) 03/30/18 07:20 Total Bilirubin 1.1 mg/dL (0.2-1.3) 03/30/18 07:20 AST 22 U/L (14-36) 03/30/18 07:20 ALT 27 U/L (9-52) 03/30/18 07:20 Alkaline Phosphatase 105 U/L (38-126) 03/30/18 07:20 Total Creatine Kinase 68 U/L (30-135) 03/29/18 20:05 CK-MB (Mass) 0.40 ng/mL (0.0-3.38) 03/29/18 20:05 Troponin I < 0.0120 ng/mL (0.00-0.120) 03/29/18 20:05 Total Protein 7.3 g/dL (6.3-8.3) 03/30/18 07:20 Albumin 3.8 g/dL (3.5-5.0) 03/30/18 07:20 Globulin 3.5 gm/dL (2.2-3.9) 03/30/18 07:20 Albumin/Globulin Ratio 1.1 (1.0-2.1) 03/30/18 07:20 Triglycerides 100 mg/dL (0-149) 03/29/18 13:44 Cholesterol 175 mg/dL (0-199) 03/29/18 13:44 LDL Cholesterol Direct 111 mg/dL (0-129) 03/29/18 13:44 HDL Cholesterol 36 mg/dL (30-70) 03/29/18 13:44 TSH 3rd Generation 1.41 mIU/L (0.46-4.68) 03/30/18 07:20 Urine Opiates Screen Negative (NEGATIVE) 03/29/18 08:16 Urine Methadone Screen Negative (NEGATIVE) 03/29/18 08:16 Ur Barbiturates Screen Negative (NEGATIVE) 03/29/18 08:16 Ur Phencyclidine Scrn Negative (NEGATIVE) 03/29/18 08:16 Ur Amphetamines Screen Negative (NEGATIVE) 03/29/18 08:16 U Benzodiazepines Scrn Negative (NEGATIVE) 03/29/18 08:16 U Oth Cocaine Metabols Negative (NEGATIVE) 03/29/18 08:16 U Cannabinoids Screen Negative (NEGATIVE) 03/29/18 08:16 Discharge Exam - Respiratory Exam Respiratory Exam: Clear to PA & Lateral Additional comments: no rales, no rhonchi, no wheezing - Cardiovascular Exam Cardiovascular Exam: +S1, +S2 - GI/Abdominal Exam GI & Abdominal Exam: Soft Additional comments: no rigid, no guarding, no peritoneal signs, obese habitus - Extremities Exam Additional comments: lymphedema, nonpitting, pedal pulses present - Psychiatric Exam Psychiatric exam: Normal Affect, Normal Mood - Skin Skin Exam: Dry, Normal Color, Warm Attending/Attestation - Attestation I have personally seen and examined this patient.: Yes I have fully participated in the care of the patient.: Yes I have reviewed all pertinent clinical information, including history, physical exam and plan: Yes Notes (Text): Patient seen, examined and case discussed with back office medical assistant. Patient is AAOX3, no acute distress. Pain free. Discussed with cardiology, no further workup. Recommend for blood pressure control. Cardiac enzymes neg, echo is within normal. Upon discharge Pt given a script for aspirin 81mg PO daily as cardioprotective agent. Pt given script for atenolol 50mg PO daily (home medication) Pt given script for losartan 100mg daily (increased dose from prior 50mg PO daily) Pt advised to follow up w/ PMD Dr. Hidalgo within 1 week of discharge for blood pressure check. Pt advised to follow up w/ assembler type bar and segment Dr. Smith within 1-2 weeks of discharge Pt advised to return to ED w/ return or worsening of symptoms This is a summary of patient's hospitalization. Please see EMR for full detail for record Discharge diagnoses: 1.Chest pain-->Resolved Assessment/Plan * Likely secondary to uncontrolled hypertension * Obs/tele * Cardiology bronzer Dr. Adelso Smith onsulted. Help appreciated * No further workup needed; recommended to control blood pressure * Risk factor: hypertension, morbid obesity, diabetes, family hx of hypertension * Patient denies any past history of :Echocardiogram, Stress Test, or Cardiac catherization * CHAYA Score 2: 8% Mortality Risk in 14 days. * EKG: NSR @75BPM, no ST-T changes X2 * Echocardiogram (03/29/18): normal left ventricular systolic function and wall motion. mild aortic and mild mitral regurgitation * Aspirin 162 mg PO stat * Start Aspirin 81mg PO daily * Recommended to continue as cardioprotective agent * Restart Losartan 50mg PO Daily (home medication) * Upon discharge, patient increased Losartan 100mg PO daily * Restart Atenolol 50mg PO Daily * Lipid panel: 100 TG, 175 cholestrol; 100 LDL, 36 HDL 2. Hypertensive Urgency-->uncontrolled Assessment/Plan * ED Course: 10mg PO Hydralazine, 162MG PO STAT Aspirin, Nitro 2% Top * Patient had a blood pressure read of 240/100 at home today. Patient normally states the SBP is in the 140's. Patient reports she took Losartan and Atenolol at home prior to coming to the hospital today * Restart Losartan 50mg PO Daily (home medication) * Upon discharge, patient increased Losartan 100mg PO daily upon discharge * Restart Atenolol 50mg PO Daily 3.Type 2 Diabetes Mellitus-->uncontrolled Assessment/Plan * Hold Amaryl and Janumett * Resume home Glipizde and Janumet doses * Hemoglobin A1C: 9.8 * ISS Low * Accu checks ACHS 4. Obesity-->chronic Assessment/Plan * Recommended for lifestyle modifications and exercise such as walking or swimming in pool 5. Hypomagnesmia-->normalized Assessment/Plan * repleted 6. PPX * GI ppx not indicated at this time. * Heparin 5000 units q12
--- NOTE | 2018-03-31 03:32 | CON ---
Copied To: Adelso Smith MD Attending MD: Adelso Smith MD DATE: 03/30/2018 REQUESTED BY: [facility]. LOCATION: She was in [address] [place] [address], [facility], bed B. HISTORY OF PRESENT ILLNESS: Requested to see this 67-year-old female, admitted yesterday with uncontrolled hypertension and atypical chest pain. This morning when I walked to her room, she was surrounded by her family. She was happy, smiling, and feeling totally fine. I found Dr. Gaffney, her physician, outside in the hallway, and we talked about this nice lady. We had translation with one of her grandsons there, she felt totally well. Apparently, yesterday, she was taking her blood pressure at home and it was elevated. She was very upset, took her medication, became anxious and came to the emergency room. On arrival here, her blood pressure was significantly elevated. She was given multiple medications in addition to what she was taking at home and advised admission for further evaluation and treatment. Since arrival here, she has been totally fine. PAST MEDICAL HISTORY: In addition to hypertension reveals diabetes type 2 under the care of physician in her neighborhood. ALLERGIES: SHE CLAIMED TO HAVE NO KNOWN ALLERGIES TO MEDICATIONS. MEDICATIONS: She was taking multiple medications at home including losartan, atenolol, insulin, and I also believe while I was talking to Dr. Gaffney, on hydralazine. REVIEW OF SYSTEMS: At this point in time, totally unremarkable. Yesterday when she came in, she had some atypical chest pain. She is totally fine now. Rest of the review of systems, otherwise, negative. PHYSICAL EXAMINATION: GENERAL: Reveals an elderly black, obese, female, very pleasant, cooperative, in no distress, whatsoever. VITAL SIGNS: Blood pressure earlier yesterday was mildly elevated at 164/72. Some other vital signs this morning, we are still looking into that, but I was told the blood pressure was still elevated. Presently, the telemetry shows sinus rhythm and she is afebrile. SKIN: Warm and dry. No evidence of edema. HEAD, EARS, NOSE, AND THROAT: Basically unremarkable for her age. NECK: Supple. No lymphadenopathy or thyromegaly felt or seen. Jugular vein nondistended. Carotids normal. CARDIOPULMONARY: Precordium is basically unremarkable. Heart sounds normal in intensity and regular with a systolic murmur on the left sternal border going almost to the apex. LUNGS: Totally clear to auscultation. ABDOMEN: Obese, nontender. No gross organomegaly. EXTREMITIES: Lower extremities unremarkable. LABORATORY DATA: Complementary data from the cardiological view point, the EKG is totally normal. The chest x-ray, borderline cardiomegaly, perhaps due to technique. Troponin is negative and an echocardiogram showing normal biventricular function, mild degree of aortic and mitral regurgitation. IMPRESSION: 1. Hypertensive cardiovascular disease, uncontrolled on admission; to be controlled as an outpatient. 2. Diabetes mellitus. SUGGESTION: Discussed with Dr. Gaffney, the best way to do is to optimize medical therapy at home and to have close followup with her physicians. Depending upon the hospital course, perhaps she should be referred to her physician and take if from there. At this point in time, I do not see any need for any other testing, depending upon what happens over the next several weeks. Adelso Smith MD
== END 2018-03-30 14:34 | disposition home or self-care (01) ==
LOC: C.ER 06:03 → C.9E 07:47 → C.6T 14:09
PROVIDERS: ADMIT Hospitalist; ATTEND Hospitalist
DX: R07.89 Other chest pain (principal); E11.9 Type 2 diabetes mellitus without complications; I16.0 Hypertensive urgency; I11.9 Hypertensive heart disease without heart failure; E83.42 Hypomagnesemia; I08.0 Rheumatic disorders of both mitral and aortic valves; Z79.4 Long term (current) use of insulin
CPT/HCPCS: 36415; 70450; 71045; 80053; 80061; 82948; 83036; 83735; 84100; 84443; 84484; 85025; 85610; 85730; 93005; 93306; 96372; 99285; G0378; G0480; J1644; J3475

== ENCOUNTER 2018-08-25 20:13 | Emergency (ER) | payer MEDICARE ==
[2018-08-25 20:13] VITALS: BMI 45.4
[2018-08-25 21:49] VITALS: BP 162/86; PULSE 75; TEMP 97.9; O2SAT 97
--- NOTE | 2018-08-25 21:52 | C.PDOC ---
History Of Present Illness 68 year old female presents to ED complaining of a nonproductive cough for the past week and sore throat for the past few days. Patient states she started having chest discomfort when coughing, as well as rib pain. States she has been taking over the counter robitussin with no relief. Denies any fever or SOB. Time Seen by Provider: 08/25/18 21:28 Chief Complaint (Nursing): Cough, Cold, Congestion History Per: Patient History/Exam Limitations: no limitations Onset/Duration Of Symptoms: Days Current Symptoms Are (Timing): Still Present Past Medical History Reviewed: Historical Data, Nursing Documentation, Vital Signs Vital Signs: Last Vital Signs Temp 97.9 F 08/25/18 21:49 Pulse 75 08/25/18 21:49 Resp 12 08/25/18 21:49 BP 162/86 H 08/25/18 21:49 Pulse Ox 97 08/25/18 21:49 - Medical History PMH: Diabetes, HTN Family History: States: No Known Family Hx - Social History Hx Tobacco Use: No Hx Alcohol Use: No Hx Substance Use: No - Immunization History Hx Tetanus Toxoid Vaccination: Yes Hx Influenza Vaccination: Yes Hx Pneumococcal Vaccination: Yes Review Of Systems Constitutional: Negative for: Fever ENT: Positive for: Throat Pain (sore throat) Cardiovascular: Positive for: Chest Pain Respiratory: Positive for: Cough (nonproductive). Negative for: Shortness of Breath Musculoskeletal: Positive for: Other (Rib pain) Physical Exam - Physical Exam Appears: Well, Non-toxic, No Acute Distress Skin: Warm, Dry, No Rash Head: Atraumatic, Normacephalic Eye(s): bilateral: Normal Inspection Ear(s): Bilateral: Normal Oral Mucosa: Moist Throat: Normal, No Erythema, No Exudate, Other (uvula midline, airway is patent) Neck: Normal ROM Chest: Symmetrical, No Tenderness Cardiovascular: Rhythm Regular, No Murmur Respiratory: Normal Breath Sounds, No Rales, No Rhonchi, No Wheezing Gastrointestinal/Abdominal: Soft, Other (obese) Extremity: Bilateral: Atraumatic, Normal Color And Temperature, Normal ROM Neurological/Psych: Oriented x3, Normal Speech ED Course And Treatment ECG: Interpreted By Me, Viewed By Me ECG Rhythm: Sinus Rhythm ECG Interpretation: No Acute Changes Rate From EC O2 Sat by Pulse Oximetry: 97 (RA) Pulse Ox Interpretation: Normal - Radiology CXR: Interpreted by Me, Viewed By Me CXR Interpretation: Yes: No Acute Disease Medical Decision Making Medical Decision Making: Plan: --Chest XR --Tessalon 100 mg PO --Zithromax 500 mg PO Disposition Counseled Patient/Family Regarding: Diagnosis, Need For Followup, Rx Given - Disposition Referrals: aDrío Ayon MD [Staff Provider] - Disposition: HOME/ ROUTINE Disposition Time: 21:52 Condition: GOOD Additional Instructions: Vaya a tejeda mdico o la clnica en 2-5 bonner sin falta, para mas evaluacin. [place] [employer] los medicamentos lyn indicado. Volver a la zack de emergencia en cualquier momento si los sntomas persisten o empeoran. Prescriptions: Azithromycin [Zithromax] 250 mg PO DAILY #4 tab Benzonatate [Tessalon Perles] 100 mg PO TID #30 sgl Instructions: Acute Bronchitis, Adult (DC) Forms: [employer] (Romanian) Print Language: UZBEK - POA Present On Arrival: None - Clinical Impression Clinical Impression: Bronchitis - PA / PIN INSERTER / Resident Statement MD/DO has reviewed & agrees with the documentation as recorded. - Scribe Statement The provider has reviewed the documentation as recorded by the Scribmargarette Dorado All medical record entries made by the Scribe were at my direction and personally dictated by me. I have reviewed the chart and agree that the record accurately reflects my personal performance of the history, physical exam, medical decision making, and the department course for this patient. I have also personally directed, reviewed, and agree with the discharge instructions and disposition.
[2018-08-25 22:03] VITALS: RESP 16
--- NOTE | 2018-08-26 08:22 | RAD ---
Date of service: 08/25/2018 HISTORY: cough COMPARISON: 03/29/2018 TECHNIQUE: Chest PA and lateral FINDINGS: LUNGS: Per frontal images vague patchy increase opacity right lung base perceived--a slightly different appearance now than before. At minimum some bronchiectasis here is likely. No definitive consolidative infiltrate on the lateral view is appreciated however. PLEURA: No significant pleural effusion identified. No pneumothorax apparent. CARDIOVASCULAR: There is presence of aortic atherosclerotic calcification on x-ray. Mild cardiomegaly-similar. Possible minimal pulmonary venous congestion. No definitive change here seen. OSSEOUS STRUCTURES: Thoracic spondylosis. Bilateral shoulder arthrosis. Left extra osseous calcification ossification-calcific rotator cuff tendinopathy and/or calcific bursitis inferred. VISUALIZED UPPER ABDOMEN: Normal. OTHER FINDINGS: None. IMPRESSION: Suspect medial right basal bronchiectasis-likely to some extent present on the prior study. Slightly increased inflammatory changes here are a consideration-namely a regional minimal patchy infiltrate per frontal images. Lateral images less revealing. Clinical follow-up recommended. Mild cardiomegaly. Multifocal arthrosis. Left shoulder calcific rotator cuff tendinopathy and/or calcific bursitis here.
--- NOTE | 2018-08-26 22:22 | CARD ---
APPROVED REPORT Date of service: 08/25/2018 EKG Measurement Heart [id number] <Conclusion> Normal sinus rhythm Possible Left atrial enlargement Low voltage QRS Borderline ECG
== END 2018-08-25 22:02 | disposition home or self-care (01) ==
LOC: C.ER 20:13
DX: J40 Bronchitis, not specified as acute or chronic (principal); I10 Essential (primary) hypertension; E11.9 Type 2 diabetes mellitus without complications